=== PATIENT | female | born 1965 | race Caucasian/White ===

== ENCOUNTER 2018-12-12 19:43 | Inpatient (IN) | payer OTHER ==
[~2018-12-12] VITALS: Ht 167.6 cm; Wt 76.3 kg
[2018-12-12] MEDS ORDERED: IPRATROPIUM BROM 0.5 MG/2.5ML INH SOL NEB ONE ×2 (20:00→21:15)
[2018-12-12] MEDS ORDERED: ALBUTEROL SULF 2.5 MG/0.5ML(0.5%) NEB SOLN NEB ONE ×2 (20:00→21:15)
[2018-12-12] MEDS ORDERED: methylPREDNISolone SOD SUCC 125 MG/2 ML VL IV ONE (20:30)
[2018-12-12] MEDS ORDERED: cefTRIAXone 1GM/50ML D5W 50 ML IV ONE (21:15)
[2018-12-12 21:33] LABS: Basophils # (auto) 0.1 uL; Basophils % (auto) 0.9 % (0.0-2.0); Eosinophils # (auto) 0.7 uL; Eosinophils % (auto) 5.4 % (0.0-7.0); Hematocrit 45.6 % (36.0-46.0); Hemoglobin 15.4 g/dL (12.2-16.2); Lymphocytes # (auto) 2.1 uL; Lymphocytes % (auto) 16.9 % (10.0-50.0); Mean Corpuscular Hemoglobin 29.6 pg (28.0-32.0); Mean Corpuscular Hgb Conc. 33.7 g/dL (32.0-36.0); Mean Corpuscular Volume 87.7 fL (80.0-100.0); Monocytes # (auto) 0.6 uL; Monocytes % (auto) 4.7 % (0.0-12.0); Neutrophils % (auto) 72.1 % (37.0-80.0); Platelet Count (auto) 238 10^3/uL (140-450); Red Cell Distribution Width 13.6 % (11.8-14.3); White Blood Cell 12.5 10^3/uL (4.4-10.8)
[2018-12-12 21:45] LABS: Alanine Aminotransferase 32 U/L (13-56); Anion Gap 8 (5-15); Aspartate Aminotransferase 13 U/L (15-37); BUN/Creatinine Ratio 13.3; Blood Urea Nitrogen 10 mg/dL (7-18); Calcium 9.1 mg/dL (8.5-10.1); Carbon Dioxide 23 mmol/L (21-32); Chloride 109 mmol/L (98-107); GFR African American 105 mL/min; GFR Non-African American 87 mL/min; Glucose 125 mg/dL (74-106); Magnesium 2.4 mg/dL (1.6-2.6); Potassium 3.5 mmol/L (3.5-5.1); Sodium 140 mmol/L (136-145)
[2018-12-12] MEDS ORDERED: IPRATROPIUM BROM 0.5 MG/2.5ML INH SOL NEB PRN (21:45)
[2018-12-12] MEDS ORDERED: MORPHINE SULF INJ 2 MG/ML SYRINGE 1ML IV PRN (21:45)
[2018-12-12] MEDS ORDERED: ACETAMINOPHEN 325 MG TAB PO PRN (21:45)
[2018-12-12] MEDS ORDERED: TEMAZEPAM 15 MG CAP PO PRN (21:45)
[2018-12-12] MEDS ORDERED: NITROGLYCERIN 0.4 MG SL TAB SL PRN (21:45)
[2018-12-12] MEDS ORDERED: ONDANSETRON HCL 4 MG/2 ML VIAL IV PRN (21:45)
[2018-12-12] MEDS ORDERED: ALBUTEROL SULF 2.5 MG/0.5ML(0.5%) NEB SOLN NEB PRN (21:45)
[2018-12-12 21:49] LABS: Alkaline Phosphatase 119 U/L (45-117); Bilirubin, Total 0.4 mg/dL (0.2-1.0); Total Protein 7.5 g/dL (6.4-8.2)
[2018-12-12] MEDS: methylPREDNISolone SOD SUCC 125 MG/2 ML VL IV SCH (22:00)
[2018-12-12] MEDS: FAMOTIDINE 20 MG TAB PO SCH (22:37)
[2018-12-13 00:10] VITALS: BP 130/73
--- NOTE | 2018-12-13 00:20 | NUR ---
Telemetry admit from ER RAJAT HODGSON admitted to Telemetry unit after SBAR received. Patient oriented to Noah Rooney, primary RN, unit, room, bed, and unit policies regarding patient care and visiting hours. Patient now on continuous telemetry monitoring, tele box # [10] and telemetry reading on arrival to unit is [SR 93]. Patient placed on bedside oxygen, weighed by bedscale and encouraged to call if they need something. All questions and concerns addressed, patient verbalized understanding. Note: []
[2018-12-13 00:42] VITALS: BP 130/73
[2018-12-13] MEDS ORDERED: HYDR-4683 PO (00:57)
[2018-12-13] MEDS ORDERED: ALPR0.25 PO (00:57)
[2018-12-13] MEDS: HYDROcodone-ACET 5/325MG TAB PO PRN ×2 (01:40→17:36)
--- NOTE | 2018-12-13 01:41 | NUR ---
MEDICATED PATIENT FOR PAIN @ 02/24. CONTINUE TO MONITOR.
[2018-12-13 02:05] LABS: Urine Bacteria FEW /hpf (None Seen); Urine Blood Negative /uL (Negative); Urine Specific Gravity 1.007 (1.001-1.035); Urine WBC 2 /hpf (0 - 5)
--- NOTE | 2018-12-13 02:09 | NUR ---
URINE SAMPLE COLLECTED AND SENT. CONTINUE CARE.
[2018-12-13 05:01] VITALS: BP 148/99
[2018-12-13 06:34] LABS: Basophils # (auto) 0 uL; Basophils % (auto) 0.3 % (0.0-2.0); Eosinophils # (auto) 0 uL; Eosinophils % (auto) 0.1 % (0.0-7.0); Hematocrit 42.6 % (36.0-46.0); Hemoglobin 14.5 g/dL (12.2-16.2); Lymphocytes # (auto) 0.7 uL; Lymphocytes % (auto) 7.7 % (10.0-50.0); Mean Corpuscular Hemoglobin 29.9 pg (28.0-32.0); Mean Corpuscular Hgb Conc. 34.1 g/dL (32.0-36.0); Mean Corpuscular Volume 87.9 fL (80.0-100.0); Monocytes # (auto) 0.1 uL; Monocytes % (auto) 0.7 % (0.0-12.0); Neutrophils # (auto) 8.4 uL; Neutrophils % (auto) 91.2 % (37.0-80.0); Nucleated Red Blood Cells % 0.2 %; Platelet Count (auto) 231 10^3/uL (140-450); Red Blood Cells 4.85 10^6/uL (4.0-5.20); Red Cell Distribution Width 13.4 % (11.8-14.3); White Blood Cell 9.2 10^3/uL (4.4-10.8)
[2018-12-13 06:50] LABS: Potassium 3.4 mmol/L (3.5-5.1)
[2018-12-13 06:51] LABS: BUN/Creatinine Ratio 13.4
--- NOTE | 2018-12-13 07:40 | NUR ---
Patient in bed, asleep. On O2 at 2 LPM. No acute distress noted.
[2018-12-13 08:40] VITALS: BP 129/65
[2018-12-13] MEDS ORDERED: cefTRIAXone 1GM/50ML D5W 50 ML IV SCH (09:00)
--- NOTE | 2018-12-13 09:00 | NUR ---
Patient sitting in bed, awake, oriented x4. No acute distress noted.
[2018-12-13] MEDS: methylPREDNISolone SOD SUCC 125 MG/2 ML VL IV SCH (10:14)
[2018-12-13] MEDS: FAMOTIDINE 20 MG TAB PO SCH ×2 (10:15→22:38)
--- NOTE | 2018-12-13 10:15 | NUR ---
Patient came from the bathroom. Steady gait noted.
--- NOTE | 2018-12-13 11:00 | NUR ---
Patient sitting in bed, awake, no acute distress noted. No complaints of pain, no nausea/vomiting noted.
--- NOTE | 2018-12-13 13:50 | NUR ---
Received a call back from Edda of [facility] that Odilia Calvillo will order to transfer the patient to [facility] today. Edda made aware Odilia Calvillo has not come in yet and has not seen the patient at this time.
--- NOTE | 2018-12-13 14:15 | NUR ---
Odilia Calvillo called back. ordered [facility] to transfer the patient to [place] ([facility])
--- NOTE | 2018-12-13 15:05 | NUR ---
Patient in bed, awake, denies pain at this time. Coughing noted. Patient made aware the doctor is coming over to see her today.
--- NOTE | 2018-12-13 15:44 | NUR ---
SS ORDER; FAXED TRANSFER ORDER TO [facility] # [phone] UYEN REIS CM FOR [facility]
[2018-12-13 16:40] VITALS: BP 145/82
--- NOTE | 2018-12-13 17:36 | NUR ---
Patient stated she has headache, at 6/10 at this time. [place] 5/325 PO given as ordered.
--- NOTE | 2018-12-13 19:52 | NUR ---
RECEIVED PATIENT FROM DAY SHIFT RN. PATIENT RESTING IN BED. NO S/S OF DISTRESS NOTED. C/O PAIN @ 2/10 AFTER PAIN MEDICATION GIVEN EARLIER. PATIENT UNDERSTOOD THE SCHEDULED OF PAIN MANAGEMENT, AND WILL COME BACK FOR PAIN MEDICATION WHEN THE TIME IS DUE AND PER PATIENT REQUEST. POC INSTRUCTED AND ENCOURAGED PATIENT TO CALL FOR REFUSE LABORER IF NEEDED. BED IN LOWEST POSITION WITH SIDE RAILS UP X 2. CALL LINDSAY WITHIN REACH. CONTINUE TO MONITOR FOR CHANGES Q1H AND PRN.
--- NOTE | 2018-12-13 21:29 | NUR ---
RECEIVED PHONE CALL FROM [facility], THERE IS NO BED AVAILABLE NOW. WILL FOLLOW UP TOMORROW. PATIENT AWARE. CONTINUE TO MONITOR.
[2018-12-13 22:00] VITALS: BP 122/70
[2018-12-13] MEDS ORDERED: POTASSIUM CHL 20 Meq TABLET PO ONE (22:00)
--- NOTE | 2018-12-13 22:25 | NUR ---
MD [place] AT BEDSIDE.
--- NOTE | 2018-12-13 22:26 | NUR ---
Respiratory note: AT BEDSIDE TO ASSESS PT FOR PRN TX. TX NOT INDICATED AT THIS TIME. BS ARE CLEAR/ DIMINISHED T/O. POX 93% ON RA, HR 75. RR18. RT NAME AND PAGER ASSIGNMENT WRITTEN ON PTS ROOM BOARD. WILL CONTINUE TO MONITOR.
[2018-12-13] MEDS ORDERED: methylPREDNISolone SOD SUCC 40 MG/ML VL IV ONE (22:30)
--- NOTE | 2018-12-13 23:10 | NUR ---
PATIENT SIGNED PAPER FOR TRANSFERRING TO [facility]. CONTINUE CARE.
[2018-12-14 02:26] VITALS: BP 122/70
--- NOTE | 2018-12-14 03:10 | NUR ---
PATIENT SLEEPING. NO S/S OF DISTRESS NOTED. CONTINUE CARE.
[2018-12-14 05:33] LABS: Basophils # (auto) 0 uL; Basophils % (auto) 0.1 % (0.0-2.0); Eosinophils # (auto) 0 uL; Hematocrit 42.9 % (36.0-46.0); Hemoglobin 14.4 g/dL (12.2-16.2); Lymphocytes # (auto) 1.4 uL; Lymphocytes % (auto) 6.7 % (10.0-50.0); Mean Corpuscular Hemoglobin 29.8 pg (28.0-32.0); Mean Corpuscular Hgb Conc. 33.5 g/dL (32.0-36.0); Mean Corpuscular Volume 88.8 fL (80.0-100.0); Monocytes # (auto) 0.5 uL; Monocytes % (auto) 2.2 % (0.0-12.0); Neutrophils # (auto) 18.4 uL; Nucleated Red Blood Cells % 0.1 %; Platelet Count (auto) 260 10^3/uL (140-450); Red Blood Cells 4.83 10^6/uL (4.0-5.20); White Blood Cell 20.3 10^3/uL (4.4-10.8)
[2018-12-14 05:43] VITALS: BP 137/74
[2018-12-14 06:00] LABS: Potassium 4.5 mmol/L (3.5-5.1)
[2018-12-14 06:05] LABS: BUN/Creatinine Ratio 18.8
[2018-12-14 08:00] VITALS: BP 113/50
[2018-12-14 08:55] VITALS: BP 144/74
[2018-12-14] MEDS ORDERED: methylPREDNISolone SOD SUCC 40 MG/ML VL IV SCH (10:00)
[2018-12-14] MEDS ORDERED: LEVOFLOXACIN 500 MG TAB PO SCH (10:00)
[2018-12-14] MEDS: FAMOTIDINE 20 MG TAB PO SCH (10:37)
[2018-12-14 13:00] VITALS: BP 147/77
--- NOTE | 2018-12-14 14:21 | NUR ---
RECEIVED PHONE CALL FROM DENNY REIS FROM [facility]. PT WILL BE TRANSFERRED TO [facility] ROOM 264B. AUTH FOR GLORIA [id number], PHONE NUMBER FOR REPORT: [phone] [phone].
--- NOTE | 2018-12-14 14:24 | NUR ---
CALLED [facility] VIA [phone] EXT: [phone]. REPORT GIVEN TO JUAN C KELLER.
--- NOTE | 2018-12-14 15:35 | NUR ---
CALLED [facility] FOR SETTING UP TRANSPORTATION VIA # [phone]. PT WILL BE PICKED UP AT 1700 PER CURRY.
[2018-12-14 16:35] VITALS: BP 150/85
--- NOTE | 2018-12-14 16:38 | NUR ---
Respiratory note: PATIENT HAS NO S/S OF RESP DISTRESS OR SOB AT THIS TIME. NO INDICATION OF MED NEB TX. WILL CONTINUE TO MONITOR PATIENT, SEE VITAL CHARTING FOR MORE DETAILS.
--- NOTE | 2018-12-14 17:13 | NUR ---
Transfer instructions given as ordered. All questions and concerns addressed. Patient verbalized understanding. Telemetry unit returned to [facility]. Patient taken to the vehicle via gurney with all personal belongings, accompanied by two EMRs. No distress noted at time of departure.
== END 2018-12-14 17:51 | disposition short-term general hospital (02) | DRG 189 ==
LOC: ER 19:54 → TELE-WESTW 23:34
PROVIDERS: ADMIT Nurse Practitioner; ATTEND Nurse Practitioner
DX: J96.01 Acute respiratory failure with hypoxia (principal); J44.1 Chronic obstructive pulmonary disease with (acute) exacerbation; J45.901 Unspecified asthma with (acute) exacerbation; E87.6 Hypokalemia; F17.210 Nicotine dependence, cigarettes, uncomplicated; F41.9 Anxiety disorder, unspecified; Z82.49 Family history of ischemic heart disease and other diseases of the circulatory system; Z90.49 Acquired absence of other specified parts of digestive tract
CPT/HCPCS: 36415; 71046; 80048; 80053; 81001; 83605; 83735; 84484; 85025; 87040; 94640; 94761; 96365; 96375; G0378; J0696